=== PATIENT | male | born 1990 | race Caucasian/White ===

== ENCOUNTER 2016-09-05 20:24 | Emergency (ER) | payer OTHER ==
[2016-09-05] MEDS ORDERED: LIDOCAINE 2% JELLY 5 ML TUBE TOP ONE (20:43)
--- NOTE | 2016-09-05 20:45 | ER Document Report ---
ED General - General Chief Complaint: Penile Injury Stated Complaint: LACERATION Time Seen by Provider: 09/05/16 20:43 Mode of Arrival: Ambulatory Information source: Patient Notes: 26-year-old uncircumcised male presents with complaints of injury to his foreskin during intercourse. Patient is concerned that the ventral aspect has a tear. Denies any other injuries TRAVEL OUTSIDE OF THE [place] IN LAST 30 DAYS: No - HPI Onset: Just prior to arrival Onset/Duration: Sudden Quality of pain: Burning Severity: Mild Pain Level: 1 Associated symptoms: None Exacerbated by: Denies Relieved by: Denies Similar symptoms previously: No Recently seen / treated by doctor: No - Related Data Allergies/Adverse Reactions: azithromycin Allergy (Verified 09/05/16 20:45) Past Medical History - Social History Smoking Status: Never Smoker Cigarette use (# per day): No Chew tobacco use (# tins/day): No Smoking Education Provided: No Family History: Reviewed & Not Pertinent Patient has suicidal ideation: No Patient has homicidal ideation: No Renal/ Medical History: Denies: Hx Peritoneal Dialysis Review of Systems - Review of Systems Notes: REVIEW OF SYSTEMS: CONSTITUTIONAL : Denies fever, chills, or sweats. Denies recent illness. EENT: Denies eye, ear, throat, or mouth pain or symptoms. Denies nasal or sinus congestion or discharge. Denies throat, tongue, or mouth swelling or difficulty swallowing. CARDIOVASCULAR: Denies chest pain. Denies palpitations or racing or irregular heart beat. Denies ankle edema. RESPIRATORY: Denies cough, cold, or chest congestion. Denies shortness of breath, difficulty breathing, or wheezing. GASTROINTESTINAL: Denies abdominal pain or distention. Denies nausea, vomiting , or diarrhea. Denies blood in vomitus, stools, or per rectum. Denies black, tarry stools. Denies constipation. GENITOURINARY: Denies difficulty urinating, painful urination, burning, frequency, blood in urine, or discharge. MUSCULOSKELETAL: Denies back or neck pain or stiffness. Denies joint pain or swelling. SKIN: Penile injury HEMATOLOGIC : Denies easy bruising or bleeding. LYMPHATIC: Denies swollen, enlarged glands. NEUROLOGICAL: Denies confusion or altered mental status. Denies passing out or loss of consciousness. Denies dizziness or lightheadedness. Denies headache. Denies weakness or paralysis or loss of use of either side. Denies problems with gait or speech. Denies sensory loss, numbness, or tingling. Denies seizures. PSYCHIATRIC: Denies anxiety or stress. Denies depression, suicidal ideation, or homicidal ideation. ALL OTHER SYSTEMS REVIEWED AND NEGATIVE. Dictation was performed using [employer] voice recognition software PHYSICAL EXAMINATION: GENERAL: Well-appearing, well-nourished and in no acute distress. HEAD: Atraumatic, normocephalic. EYES: Pupils equal round and reactive to light, extraocular movements intact, sclera anicteric, conjunctiva are normal. ENT: Nares patent, oropharynx clear without exudates. Moist mucous membranes. NECK: Normal range of motion, supple without lymphadenopathy LUNGS: Breath sounds clear to auscultation bilaterally and equal. No wheezes rales or rhonchi. HEART: Regular rate and rhythm without murmurs ABDOMEN: Soft, nontender, nondistended abdomen. No guarding, no rebound. No masses appreciated. Musculoskeletal: Normal range of motion, no pitting or edema. No cyanosis. NEUROLOGICAL: Cranial nerves grossly intact. Normal speech, normal gait. Normal sensory, motor exams PSYCH: Normal mood, normal affect. SKIN: There is a superficial tear between the foreskin and the ventral surface of the glans penis, as a result there is a small flap that is now hanging where the foreskin had been attached, Physical Exam - Vital signs Vitals: Temp Pulse Resp BP Pulse Ox 98.1 F 103 H 16 148/98 H 98 09/05/16 20:36 09/05/16 20:36 09/05/16 20:36 09/05/16 20:36 09/05/16 20:36 Course - Re-evaluation Re-evalutation: 09/05/16 21:20 Given the extent of the injury I do not believe repair is appropriate, there is a small tear with no significant injury to the urethra glans penis or cosmetic status of the penis. Patient will be given lidocaine jelly for pain relief, very strict return precautions have been provided regarding difficulty urinating ejaculating or infectious process. Patient will be given follow-up with urology if he wishes to have cosmetic repair After performing a Medical Screening Examination, I estimate there is LOW risk for OPEN FRACTURE, COMPARTMENT SYNDROME, TENDON RUPTURE, ACUTE NEUROVASCULAR INJURY, or RETAINED FOREIGN BODY, thus I consider the discharge disposition reasonable. Also, there is no evidence or peritonitis, sepsis, or toxicity. I have reevaluated this patient multiple times and no significant life threatening changes are noted. The patient and I have discussed the diagnosis and risks, and we agree with discharging home with close follow-up with the understanding that symptoms and presentations can change. We also discussed returning to the Emergency Department immediately if new or worsening symptoms occur. We have discussed the symptoms which are most concerning (e.g., changing or worsening pain, fever, numbness, weakness, cool or painful digits) that necessitate immediate return. - Vital Signs Vital signs: Temp Pulse Resp BP Pulse Ox 98.3 F 89 18 142/88 H 96 09/05/16 20:53 09/05/16 20:53 09/05/16 20:53 09/05/16 20:53 09/05/16 20:53 Discharge - Discharge Clinical Impression: foreskin laceration Condition: Stable Disposition: HOME, SELF-CARE Additional Instructions: Return immediately if there is any sign of infection or any other concerns Referrals: BOYD FRIEDMAN MD [ACTIVE STAFF] - Follow up tomorrow
[2016-09-05 21:29] VITALS: BP 142/88
== END 2016-09-05 20:55 | disposition home or self-care (01) ==
LOC: ER 20:24
DX: S31.21XA Laceration without foreign body of penis, initial encounter (principal); X58.XXXA Exposure to other specified factors, initial encounter
CPT/HCPCS: 99283

== ENCOUNTER 2017-01-21 12:41 | Emergency (ER) | payer OTHER ==
[2017-01-21] MEDS ORDERED: OXYCODONE-ACETAMINOPHEN 5-325 MG TABLET PO ONE (14:18)
--- NOTE | 2017-01-21 14:31 | ER Document Report ---
HPI - HPI Patient complains to provider of: Neck and left shoulder pain Onset: Yesterday Onset/Duration: Sudden Quality of pain: Burning Severity: Moderate Pain Level: 4 Context: Patient states he was lifting chairs yesterday but does not recall any acute injury. Started having some neck and left shoulder pain which radiates numbness and tingling down his left arm. Patient states he has had this before , had a recent MRI at the [facility] in [place]. Was diagnosed with bulging disks, but had no spurs or other abnormalities other than the bulging disks. Patient is already on ibuprofen, gabapentin, and muscle relaxers for this condition. States symptoms are the same as what he has had in the past. Patient states he is being referred to neurosurgeon. Associated Symptoms: None Exacerbated by: Movement Relieved by: Denies Similar symptoms previously: Yes Recently seen / treated by doctor: Yes - ROS ROS below otherwise negative: Yes Systems Reviewed and Negative: Yes All other systems reviewed and negative - CARDIOVASCULAR Cardiovascular: DENIES: Chest pain - RESPIRATORY Respiratory: DENIES: Trouble Breathing - MUSCULOSKELETAL Musculoskeletal: REPORTS: Extremity pain - left arm - DERM Skin Color: Normal Past Medical History - General Information source: Patient - Social History Smoking Status: Current Every Day Smoker Chew tobacco use (# tins/day): No Frequency of alcohol use: former Drug Abuse: None Lives with: Spouse/Significant other Family History: Reviewed & Not Pertinent Patient has suicidal ideation: No Patient has homicidal ideation: No Musculoskeltal Medical History: Reports Hx Musculoskeletal Trauma, Reports Other - Chronic neck pain Psychiatric Medical History: Reports: Hx Anxiety, Hx Depression - anxiety Surgical Hx: Negative - Immunizations Hx Diphtheria, Pertussis, Tetanus Vaccination: No Vertical Provider Document - CONSTITUTIONAL Agree With Documented VS: Yes Exam Limitations: No Limitations General Appearance: WD/WN, Mild Distress - INFECTION CONTROL TRAVEL OUTSIDE OF THE [place] IN LAST 30 DAYS: No - HEENT HEENT: Atraumatic, Normal ENT Exam, Normocephalic, PERRLA - NECK Notes: Tenderness noted to cervical spine and left cervical muscles extending over to the left shoulder. 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 Neurovascular and sensation is intact to left extremity. Pain with range of motion of neck, more with turning head towards the left shoulder. - RESPIRATORY Respiratory: Breath Sounds Normal, No Respiratory Distress O2 Sat by Pulse Oximetry: 99 - CARDIOVASCULAR Cardiovascular: Regular Rate, Regular Rhythm - GI/ABDOMEN Gastrointestinal: Abdomen Soft - MUSCULOSKELETAL/EXTREMETIES Musculoskeletal/Extremeties: Tender - Muscles across left shoulder - NEURO Level of Consciousness: Awake, Alert, Appropriate - DERM Integumentary: Warm, Dry Course - Vital Signs Vital signs: Temp Pulse Resp BP Pulse Ox 98.4 F 102 H 18 144/86 H 99 01/21/17 12:44 01/21/17 12:44 01/21/17 12:44 01/21/17 12:44 01/21/17 12:44 Discharge - Discharge Clinical Impression: Chronic neck pain, Paresthesia of left upper extremity Condition: Good Disposition: HOME, SELF-CARE Additional Instructions: Ice or heat packs to neck and shoulder continue medications that you already have at home for this condition Take Percocet as needed Follow-up with your doctor Monday for recheck Return for worsening symptoms and as needed Prescriptions: Oxycodone HCl/Acetaminophen [Percocet 5-325 mg Tablet] 1 - 2 tab PO ASDIR PRN # 15 tablet PRN Reason:
[2017-01-21 14:40] VITALS: BP 138/78
== END 2017-01-21 14:41 | disposition home or self-care (01) ==
LOC: ER 12:41
DX: G89.29 Other chronic pain (principal); M54.2 Cervicalgia; R20.2 Paresthesia of skin; M25.512 Pain in left shoulder; F17.200 Nicotine dependence, unspecified, uncomplicated
CPT/HCPCS: 99283

== ENCOUNTER 2017-04-26 06:32 | Emergency (ER) | payer OTHER ==
[2017-04-26] MEDS ORDERED: KETOROLAC TROMETHAMINE 60 MG/2 ML SDV IM ONE (07:31)
[2017-04-26] MEDS ORDERED: ACETAMINOPHEN 325 MG TABLET PO ONE (07:32)
--- NOTE | 2017-04-26 07:41 | ER Document Report ---
HPI - HPI Patient complains to provider of: Chronic left neck pain Onset: Other - Over a year Onset/Duration: Worse Pain Level: 4 Context: 26-year-old male [facility] with herniated disc in the cervical spine on MRI is [facility]. He normally takes Tylenol and Motrin for pain but after raking yesterday it exacerbated and has worsening pain not being able to sleep last night. He uses heat ordinarily. He also takes Neurontin 1200 mg. Exacerbated by: Movement Relieved by: Denies - ROS ROS below otherwise negative: Yes Systems Reviewed and Negative: Yes All other systems reviewed and negative - MUSCULOSKELETAL Musculoskeletal: REPORTS: Extremity pain Past Medical History - General Information source: Patient - Social History Smoking Status: Current Every Day Smoker Frequency of alcohol use: None Drug Abuse: None Lives with: Family Family History: Reviewed & Not Pertinent Patient has suicidal ideation: No Patient has homicidal ideation: No Renal/ Medical History: Denies: Hx Peritoneal Dialysis Musculoskeltal Medical History: Reports Hx Musculoskeletal Trauma, Reports Other - Chronic neck pain and torticollis due to cervical spine herniation Psychiatric Medical History: Reports: Hx Anxiety, Hx Depression - anxiety Surgical Hx: Negative - Immunizations Hx Diphtheria, Pertussis, Tetanus Vaccination: No Vertical Provider Document - CONSTITUTIONAL Agree With Documented VS: Yes Exam Limitations: No Limitations - INFECTION CONTROL TRAVEL OUTSIDE OF THE [place] IN LAST 30 DAYS: No - HEENT HEENT: Normal ENT Exam - NECK Neck: Supple - Tender left trapezius and left periscapular muscle. He is tilting his head to the left. Vascular is intact in the arm with full range of motion upon encouragement. - RESPIRATORY Respiratory: Breath Sounds Normal, No Respiratory Distress - CARDIOVASCULAR Cardiovascular: Regular Rate, Regular Rhythm - MUSCULOSKELETAL/EXTREMETIES Musculoskeletal/Extremeties: Tender - See above. negative: Edema - NEURO Level of Consciousness: Awake, Alert Motor/Sensory: No Motor Deficit, No Sensory Deficit - DERM Integumentary: Warm, Dry, No Rash Discharge - Discharge Clinical Impression: Exacerbation of chronic left torticollis Condition: Good Disposition: HOME, SELF-CARE Additional Instructions: [facility] as [facility] Warm compress Tylenol up to 4000 mg per day Continue the Motrin 800 mg 3 times a day Continue the Neurontin Return to the emergency room any concerns or worsening of the symptoms Prescriptions: Oxycodone HCl/Acetaminophen [Percocet 5-325 mg Tablet] 1 - 2 tab PO ASDIR PRN # 10 tablet PRN Reason:
[2017-04-26 08:26] VITALS: BP 136/96
== END 2017-04-26 08:08 | disposition home or self-care (01) ==
LOC: ER 06:32
DX: M43.6 Torticollis (principal); M54.2 Cervicalgia; G89.29 Other chronic pain; Z79.899 Other long term (current) drug therapy; F17.200 Nicotine dependence, unspecified, uncomplicated
CPT/HCPCS: 99283; 96372; J1885

== ENCOUNTER 2017-05-03 17:04 | Emergency (ER) | payer OTHER ==
[2017-05-03] MEDS ORDERED: DEXAMETHASONE SOD PHOS INJ 10 MG/1 ML VIAL IM ONE (17:53)
--- NOTE | 2017-05-03 18:01 | ER Document Report ---
ED Neck/Back Problem - General Chief Complaint: Neck Pain >24hrs old Stated Complaint: NECK PAIN Time Seen by Provider: 05/03/17 17:44 Mode of Arrival: Ambulatory Information source: Patient Notes: 26-year-old male presented ED for complaint of chronic neck and back pain. He is followed by the [facility]. And is he states he is scheduled for his a surgical consult next week. He states he injured his neck and back about for 5 years ago and [facility]. His primary doctor gave him gabapentin and ibuprofen. He states that he has compressed disc and bulging disc with pinched nerve on his last radiological exams. He states that his primary doctor gave him steroids about a month ago and they helped for short period of time. He states he was seen several weeks ago and 1 of the providers here gave him Percocet and he needs more pain medicine for the pain until he can be seen by his surgeon. He states his [facility] doctor will not give him narcotics but gives him gabapentin and ibuprofen TRAVEL OUTSIDE OF THE [place] IN LAST 30 DAYS: No - HPI Patient complains to provider of: Pain, Neck, Upper back Onset: Other - Chronic Onset: Chronic Timing: Still present Quality of pain: Sharp, Throbbing Severity: Moderate Pain Level: 4 Recent injury: No Associated symptoms: Like prior neck/back pain, Radiation to arm Exacerbated by: Movement of neck Relieved by: Nothing Similar symptoms previously: Yes Recently seen / treated by doctor: Yes - Related Data Allergies/Adverse Reactions: azithromycin Allergy (Verified 12/29/16 23:02) Past Medical History - General Information source: Patient - Social History Smoking Status: Current Every Day Smoker Cigarette use (# per day): Yes - Half a pack a day Chew tobacco use (# tins/day): No Smoking Education Provided: Yes - 4 minutes Frequency of alcohol use: None Drug Abuse: None Occupation: None Lives with: Family Family History: Reviewed & Not Pertinent Patient has suicidal ideation: No Patient has homicidal ideation: No - Past Medical History Cardiac Medical History: Reports: None Pulmonary Medical History: Reports: None EENT Medical History: Reports: None Neurological Medical History: Reports: None Endocrine Medical History: Reports: None Renal/ Medical History: Reports: None Malignancy Medical History: Reports None GI Medical History: Reports: None Musculoskeltal Medical History: Reports Hx Arthritis, Reports Hx Musculoskeletal Deformity - Compressed and bulging disc cervical, Reports Hx Musculoskeletal Trauma - Cervical spine injuries while in the . Psychiatric Medical History: Reports: Hx Anxiety, Hx Depression Traumatic Medical History: Reports: None Infectious Medical History: Reports: None Surgical Hx: Negative Past Surgical History: Reports: None - Immunizations Hx Diphtheria, Pertussis, Tetanus Vaccination: No Review of Systems - Review of Systems Notes: Constitutional: [PRESENT: as per HPI. ABSENT: chills, fever(s), headache(s), weight gain, weight loss] Eyes: [ABSENT: visual disturbances] Ears: [ABSENT: hearing changes] Cardiovascular: [ABSENT: chest pain, dyspnea on exertion, edema, orthropnea, palpitations] Respiratory: [ABSENT: cough, hemoptysis] Gastrointestinal: [ABSENT: abdominal pain, constipation, diarrhea, hematemesis, hematochezia, nausea, vomiting] Genitourinary: [ABSENT: dysuria, hematuria] Musculoskeletal: [ABSENT: joint swelling] pain to the neck that is chronic. Patient states he is awaiting consult for surgery to the cervical spine. Integumentary: [ABSENT: rash, wounds] Neurological: [ABSENT: abnormal gait, abnormal speech, confusion, dizziness, focal weakness, syncope] Psychiatric: [ABSENT: anxiety, depression, homicidal ideation, suicidal ideation ] Endocrine: [ABSENT: cold intolerance, heat intolerance, menstrual abnormalities , polydipsia, polyuria] Hematologic/Lymphatic: [ABSENT: easy bleeding, easy bruising, lymphadenopathy] Physical Exam - Vital signs Vitals: Temp Pulse Resp BP Pulse Ox 98.2 F 105 H 16 137/93 H 97 05/03/17 17:20 05/03/17 17:20 05/03/17 17:20 05/03/17 17:20 05/03/17 17:20 - Notes Notes: PHYSICAL EXAMINATION: GENERAL: Well-appearing, well-nourished and in no acute distress. HEAD: Atraumatic, normocephalic. EYES: Pupils equal round and reactive to light, extraocular movements intact, sclera anicteric, conjunctiva are normal. ENT: Nares patent, oropharynx clear without exudates. Moist mucous membranes. NECK: Tenderness to cervical spine as well as to left and right side of neck. Patient has full range of motion of his neck full range of motion of both arms and shoulders. He states there is pain with range of motion to his shoulders. Patient has full sensation to both arms. Patient has 5 out of 5 resistance to both shoulders LUNGS: Breath sounds clear to auscultation bilaterally and equal. No wheezes rales or rhonchi. HEART: Regular rate and rhythm without murmurs ABDOMEN: Soft, nontender, nondistended abdomen. No guarding, no rebound. No masses appreciated. Musculoskeletal: Normal range of motion, no pitting or edema. No cyanosis. NEUROLOGICAL: Cranial nerves grossly intact. Normal speech, normal gait. Normal sensory, motor exams PSYCH: Normal mood, normal affect. SKIN: Warm, Dry, normal turgor, no rashes or lesions noted. Course - Re-evaluation Re-evalutation: 05/04/17 02:08 Patient stated he had ibuprofen just before coming to the emergency room and I treated him with Toradol while in the emergency room. Patient was discharged home with a prescription for Robaxin as he was driving. Patient requested a Toradol shot while in the emergency room but explained to him that I could not give him Toradol when he had already had ibuprofen. Patient to follow-up with his [facility] doctor as well as his surgeon as scheduled. Patient stated several times that he needed narcotics and I explained to him that the emergency room did not treat chronic pain with narcotics. - Vital Signs Vital signs: Temp Pulse Resp BP Pulse Ox 98.7 F 100 18 140/102 H 97 18 18:08 0318 18:08 18 18:08 05/03/17 18:08 05/03/17 18:08 Discharge - Discharge Clinical Impression: Chronic neck and back pain Condition: Stable Disposition: HOME, SELF-CARE Instructions: Range of Motion Exercises ([facility]), Exercise Program for the Shoulder ([facility]), Stretching Exercises for the Back ([facility]) Additional Instructions: Chronic Back Pain Chronic back pain (pain persisting longer than three months) is a common problem. A medical evaluation can look for herniated disc, arthritis, osteoporosis, tumors, and infections. But at least half the time, there's no obvious treatable cause. Anxiety and depression tend to worsen back pain. Ibuprofen or other anti-inflammatory medicine can help. A heating pad, used for 15-20 minutes at a time, can ease pain. For this type of back pain, narcotic medicines should be avoided. Muscle relaxers are rarely helpful unless you're having spasms. Activity is important. Find an aerobic exercise program that your back can tolerate. Too much rest makes back pain worse. Specific back exercises are usually prescribed to strengthen the back and abdominal muscles. Often, a physical therapist can help. Avoid heavy lifting, working while bent over, or standing with both knees straight. Most back pain patients do better with a firm mattress. If new symptoms of a "herniated disc" (radiation of pain, numbness, or tingling down the back of the leg or weakness in the leg) occur, you should be re-examined. Chronic Pain Control Stress, inactivity, and depression make pain more severe regardless of the cause of the pain. Stress and poor physical condition can cause pain such as headaches and backache. Relaxation: Rest in a quiet place with your eyes closed for 20 minutes twice daily. Concentrate on a pleasant image, or simply "feel" your breathing. Clear your mind. Stress management: Deal with your "stressors." Either take action, or eliminate the stressor from your life. Don't let things hang over you. Accept those things you can't change. Nutrition: Eat small, balanced meals -- don't skip, don't overeat. Meals should be high-carbohydrate, low-sugar, low-fat. Exercise: Exercise helps painful conditions and eases stress. Get 30 minutes of moderate exercise, five days a week. Do an activity that does not flare your pain. Precautions: Pain which continues to disrupt daily activities, or which changes in nature, requires a medical evaluation. Pain Clinic referral is available. We do not manage chronic pain in the Emergency Department. We will try to appropriately help you through an acute flare of your chronic painful condition , but for on-going chronic pain that does not improve, you will need to see your private doctor or automotive painter helper. We do not provide repeated medication management of chronic painful conditions. If you wish, we can provide the name of local pain management physicians. STEROID MEDICATION: You have been given an injection of medicine of the cortisone/steroid class. This medication is used to control inflammation or allergy. It is often continued as a pill for a short period of time, until the acute process subsides. There are usually no side effects from short-term use of cortisone-like medications. Some persons feel an increased sense of well-being and are not sleepy at bedtime. Long-term use of cortisone medications is best avoided, unless required for a severe condition. If your condition does not remit, or relapses after the course of corticosteroid medication, you should consult your physician. USE OF TYLENOL (ACETAMINOPHEN): Acetaminophen may be taken for pain relief or fever control. It's much safer than aspirin, offering a wider range of "safe" dosages. It is safe during . Some brand names are Tylenol, Panadol, Datril, Anacin 3, Tempra, and Liquiprin. Acetaminophen can be repeated every four hours. The following are maximum recommended dosages: WEIGHT Dose Drops Elixir Chewable( 80mg) (LBS.) drprs=droppers tsp=teaspoon 6 40 mg 0.4 ml (1/2) 6-11 80 mg 0.8 ml (full) tsp 1 tab 12-16 120 mg 1 1/2 drprs 3/4 tsp 1 1/2 tabs 17-23 160 mg 2 drprs 1 tsp 2 tabs 24-30 240 mg 3 drprs 1 1/2 tsp 3 tabs 30-35 320 mg 2 tsp 4 tabs 36-41 360 mg 2 1/4 tsp 4 1/2 tabs 42-47 400 mg 2 1/2 tsp 5 tabs 48-53 480 mg 3 tsp 6 tabs 54-59 520 mg 3 1/4 tsp 6 1/2 tabs 60-64 560 mg 3 1/2 tsp 7 tabs 65-70 600 mg 3 3/4 tsp 7 1/2 tabs 71-76 640 mg 4 tsp 8 tabs 77-82 720 mg 4 1/2 tsp 9 tabs 83-88 800 mg 5 tsp 10 tabs >89 pounds or adults 650 mg to 900 mg Acetaminophen can be repeated every four hours. Maximum dose not to exceed 4000 mg a day. These maximum recommended dosages are slightly higher than the dosages written on the product container, but these dosages are very safe and below the toxic dosage for acetaminophen. ICE PACKS: Apply ice packs frequently against the painful area. Many different schedules are recommended, such as "20 minutes on, 20 minutes off" or "one hour ice, two hours rest." If you need to work, you may need to go longer between ice treatments. You should plan to have the area ice packed AT LEAST one fourth of the time. The ice should be applied over the wrap, tape, or splint, or over a layer of cloth -- not directly against the skin. Some ice bags have a built-in cloth and can be put directly on the skin. WARM PACKS: After approximately two days, apply gentle heat (such as a heating pad or hot water bottle) for about 20 to 30 minutes about every two hours -- at least four times daily. Warmth and elevation will help you make a more rapid recovery , and will ease the pain considerably. Do not use HOT heat, and never apply heat for longer than 30 minutes. The continuous heat can invisibly damage skin and muscles -- even when no burn is seen on the surface. Damaged muscles can make you MORE sore. MUSCLE RELAXERS: Muscle relaxing medications are usually prescribed for acute muscle spasm or injury to the neck and back. They are often combined with antiinflammatory pain medication for increased relief. You may stop the muscle relaxer when the pain and stiffness have improved. Start the medication again if spasms recur. Muscle relaxers may cause drowsiness, especially with the first dose. Do not operate machinery or drive while under the effects of the medication. Most muscle relaxers last up to 24 hours. Do not combine the medication with alcohol. FOLLOW-UP CARE: If you have been referred to a physician for follow-up care, call the physician s office for an appointment as you were instructed or within the next two days. If you experience worsening or a significant change in your symptoms, notify the physician immediately or return to the Emergency Department at any time for re-evaluation. Call your [facility] doctor to get further pain medication. Please follow-up with your neurologist and your neurosurgeon as per scheduled. Prescriptions: Methocarbamol [Robaxin 500 mg Tablet] 500 mg PO BIDP PRN #14 tablet PRN Reason: Forms: Smoking Cessation Education, Elevated Blood Pressure
[2017-05-03 18:10] VITALS: BP 140/102
== END 2017-05-03 18:39 | disposition home or self-care (01) ==
LOC: ER 17:04
DX: M54.2 Cervicalgia (principal); M54.9 Dorsalgia, unspecified; G89.29 Other chronic pain; Z79.899 Other long term (current) drug therapy; F17.210 Nicotine dependence, cigarettes, uncomplicated
CPT/HCPCS: 99406; 99283; 96372; J1100

== ENCOUNTER 2017-05-04 01:24 | Emergency (ER) | payer OTHER ==
[2017-05-04] MEDS ORDERED: DIAZEPAM INJ 10 MG/2 ML DISP.SYRIN IM ONE (02:14)
[2017-05-04] MEDS ORDERED: DIPHENHYDRAMINE HCL 50 MG/ML VIAL IM ONE (02:15)
--- NOTE | 2017-05-04 02:16 | ER Document Report ---
HPI - HPI Pain Level: 5 Notes: Patient is a 26-year-old male with a history of chronic cervicalgia status post injury 4-5 years ago who presents to the ED complaining of left-sided neck stiffness and pain status post discharge from his visit last evening. Patient states that he was given a steroid injection and sent home with Loretta. Patient states that when he went home to try to sleep his neck stiffened up and he has had pain sleeping so he came to the emergency department. Patient states that he has continued chronic left-sided neck pain that radiates down into his left arm. Patient states that he is scheduled to meet with his surgeon next Monday. Patient states that he is still eating and drinking without any difficulties. He is urinating normally and having normal bowel movements. Patient states that his discomfort today is nothing new from what he has had in the past aside from the stiffness associated. He has not had any recent illness. Denies any headache, fever, head injury, changes in vision/ speech/mentation/hearing, URI, sore throat, chest pain, palpitations, syncope, cough, shortness of breath, wheeze, dyspnea, abdominal pain, nausea/vomiting/ diarrhea, urinary retention, dysuria, hematuria, loss of control of bowel or bladder, numbness/tingling, saddle anesthesia, muscle paralysis/weakness, or rash. - ROS Systems Reviewed and Negative: Yes All other systems reviewed and negative - DERM Skin Color: Normal Past Medical History - Social History Smoking Status: Unknown if Ever Smoked Family History: Reviewed & Not Pertinent Patient has suicidal ideation: No Patient has homicidal ideation: No Renal/ Medical History: Denies: Hx Peritoneal Dialysis Musculoskeltal Medical History: Reports Hx Musculoskeletal Trauma Psychiatric Medical History: Reports: Hx Anxiety, Hx Depression - anxiety - Immunizations Hx Diphtheria, Pertussis, Tetanus Vaccination: No Vertical Provider Document - CONSTITUTIONAL Agree With Documented VS: Yes Notes: PHYSICAL EXAMINATION: GENERAL: Well-appearing, well-nourished and in no acute distress. A&Ox4. Answers questions appropriately. HEAD: Atraumatic, normocephalic. Non-tender. EYES: Pupils equal round and reactive to light, extraocular movements intact, sclera anicteric, conjunctiva are normal. ENT: Nares patent and without discharge. oropharynx clear without exudates. No tonsilar hypertrophy or erythema. Moist mucous membranes. NECK: LROM. supple without lymphadenopathy. No rigidity. No midline tenderness. Spurling negative. + mild tenderness to the left c-paraspinal mm and left trapezius mm. Head turned slightly left. Kernig/brudzinski otherwise negative. LUNGS: Breath sounds clear to auscultation bilaterally and equal. No wheezes rales or rhonchi. HEART: Regular rate and rhythm without murmurs, rubs, gallops. Musculoskeletal: UE's b/l: FROM to passive/active. Strength 5+/5. No deficits noted. No bony tenderness of extremities. N/V intact. Back: FROM to passive/active. Strength 5+/5. No vertebral point tenderness, stepoffs, or deformities. No other bony tenderness, erythema, swelling, or ecchymosis. Extremities: No cyanosis, clubbing, or edema b/l. Peripheral pulses 2+. Capillary refill less than 2 seconds. NEUROLOGICAL: Normal speech, normal gait. Normal sensory, motor exams. Reflexes 2+ b/l. PSYCH: Normal mood, normal affect. SKIN: Warm, Dry, normal turgor, no rashes or lesions noted. - INFECTION CONTROL TRAVEL OUTSIDE OF THE [place] IN LAST 30 DAYS: No - RESPIRATORY O2 Sat by Pulse Oximetry: 96 Course - Re-evaluation Re-evalutation: 05/04/17 02:[address] King who is in agreement with dispo and plan: Patient is an afebrile, well-hydrated, 26-year-old male who presents to the ED with left neck/trapezius muscle spasm, possible mild torticollis. Vitals are acceptable (HR on my exam 96). PE is otherwise unremarkable for any focal neurological deficits, neurovascular compromise, obvious tendon/ligament rupture , obvious fracture/dislocation, sepsis, meningitis, or other systemic emergent condition at this time. No labs or imaging warranted at this time based on H& P. Patient was given Valium 5mg, toradol 30mg, lidoderm patch, and Benadryl 50mg IM. patient already has a muscle relaxer prescription from his recent visit as well as having received Decadron last evening. I will send him home with naproxen and lidoderm patches. Recommend conservative measures otherwise for symptoms. Recheck with your PCM in 3-5 days. Keep consult with her surgeon next week. Return to the ED with any worsening/concerning symptoms otherwise as reviewed discharge. Patient is in agreement. Pt did request vicodin which will not give as he appears to already be on nucynta and other medications through his pain management from his PCM. He was also asking for this at his prev visit with Alvin. Pt also asked to speak with another provider due to me not giving him narcotics. Dr. King went and spoke with the patient. Discharge as above. - Vital Signs Vital signs: Temp Pulse Resp BP Pulse Ox 98.3 F 128 H 18 145/91 H 96 05/04/17 01:29 05/04/17 01:29 05/04/17 01:29 05/04/17 01:29 05/04/17 01:29 Discharge - Discharge Clinical Impression: Trapezius muscle spasm Condition: Stable Disposition: HOME, SELF-CARE Additional Instructions: Rest, Ice Tylenol/ibuprofen as needed Light stretches daily Strength exercises as able Moist heat and massage may help F/u with your PCP in 3-5 days for a recheck Keep consult with your surgeon next week Return to the ED with any worsening symptoms and/or development of fever, headache, chest pain, palpitations, syncope, shortness of breath, trouble breathing, abdominal pain, n/v/d, blood in stool/urine, loss of control of bowel /bladder, urinary retention, muscle weakness/paralysis, saddle anesthesia, numbness/tingling, or other worsening symptoms that are concerning to you. Prescriptions: Lidocaine [Lidoderm] 1 each TP DAILY #30 adh..patch Naproxen 500 mg PO BID PRN #30 tablet PRN Reason: Forms: Elevated Blood Pressure Referrals: DILCIA RODRIGUEZ MD [Primary Care Provider] - Follow up in 3-5 days
[2017-05-04] MEDS ORDERED: KETOROLAC TROMETHAMINE INJ/PF 30 MG/1 ML SDV IM ONE (02:26)
[2017-05-04] MEDS ORDERED: LIDOCAINE 5% (700 MG) TRANSDERMAL ADH..PATCH TP ONE (03:01)
[2017-05-04 03:28] VITALS: BP 136/57
== END 2017-05-04 03:27 | disposition home or self-care (01) ==
LOC: ER 01:24
DX: M62.830 Muscle spasm of back (principal); M54.2 Cervicalgia; G89.29 Other chronic pain
CPT/HCPCS: 99282; 96372; J3360; J1200; J1885

== ENCOUNTER 2017-05-20 09:41 | Emergency (ER) | payer OTHER ==
--- NOTE | 2017-05-20 10:07 | ER Document Report ---
ED Neck/Back Problem - General Mode of Arrival: Ambulatory Information source: Patient TRAVEL OUTSIDE OF THE [place] IN LAST 30 DAYS: No - HPI Patient complains to provider of: Pain, Injury, Neck Onset: This morning Where: Home Context: Other - see notes above Associated symptoms: Other - see notes above Exacerbated by: Movement of neck - General Chief Complaint: Neck Pain < 24hrs old Stated Complaint: NECK PAIN Time Seen by Provider: 05/20/17 09:55 Notes: 26 year old male with history of 3 cervical bulging discs presents to the ED complaining of neck pain and stiffness that was exacerbated this morning when his son jumped from the couch and landed knee first onto the patient's neck while seated on the floor. Patient reports that he has a previous neck injury that he is seeing neurology for and believes that today's injury has exacerbated the injury. Patient had an MRI performed in November 2016, but is still waiting to be seen by his neurologist. Patient additionally complains of numbness and tingling down the anterior aspect of the left arm. Patient on Neurontin and steroids. Last steroid dose last week. Patient was taking Robaxin, but ran out 3 days ago. (ROSALBA ROMAN) - Related Data Allergies/Adverse Reactions: azithromycin Allergy (Verified 05/20/17 09:58) Past Medical History - General Information source: Patient - Social History Smoking Status: Current Every Day Smoker Chew tobacco use (# tins/day): No Frequency of alcohol use: None Drug Abuse: None Family History: Reviewed & Not Pertinent Patient has suicidal ideation: No Patient has homicidal ideation: No Renal/ Medical History: Denies: Hx Peritoneal Dialysis Musculoskeltal Medical History: Reports Hx Musculoskeletal Trauma, Reports Other - 3 bulging cervical discs Psychiatric Medical History: Reports: Hx Anxiety, Hx Depression - anxiety - Immunizations Hx Diphtheria, Pertussis, Tetanus Vaccination: No Review of Systems - Review of Systems Constitutional: No symptoms reported EENT: No symptoms reported Cardiovascular: No symptoms reported Respiratory: No symptoms reported Gastrointestinal: No symptoms reported Genitourinary: No symptoms reported Male Genitourinary: No symptoms reported Musculoskeletal: See HPI, Neck pain, Other - stiff neck Skin: No symptoms reported Hematologic/Lymphatic: No symptoms reported Neurological/Psychological: See HPI, Numbness - down anterior aspect of left arm , Tingling - down anterior aspect of left arm -: Yes All other systems reviewed and negative Physical Exam - Vital signs Vitals: Temp Pulse Resp BP Pulse Ox 98.3 F 109 H 20 145/93 H 96 05/20/17 09:51 05/20/17 09:51 05/20/17 09:51 05/20/17 09:51 05/20/17 09:51 - Notes Notes: GENERAL: Alert, interacts well. No acute distress. HEAD: Normocephalic, atraumatic. EYES: Pupils equal, round, and reactive to light. Extraocular movements intact. ENT: Oral mucosa moist, tongue midline. NECK: Trachea midline. Tenderness to palpation of the bilateral trapezius muscles at the level of the neck to the shoulders. Diffuse bony midline cervical tenderness with no deformity. Held neck stiff in midline. Range of motion held to midline. LUNGS: Clear to auscultation bilaterally, no wheezes, rales, or rhonchi. No respiratory distress. HEART: Mild tachycardia with normal rhythm. No murmurs, gallops, or rubs. EXTREMITIES: Moves all 4 extremities spontaneously. No edema, radial and dorsalis pedis pulses 2/4 bilaterally. No cyanosis. Full range of motion of the bilateral upper extremities. NEUROLOGICAL: Alert and oriented x3. Normal speech. Sharp-dull sensation intact across the left upper extremity. Slight weakness with the supraspinatus test to the left upper extremity, otherwise 5/5 strength to the bilateral upper extremities. PSYCH: Normal affect, normal mood. SKIN: Warm, dry, normal turgor. No rashes or lesions noted. (ROSALBA ROMAN) Course - Re-evaluation Re-evalutation: 05/20/17 12:07 Initial x-ray shows reversal cervical lordosis likely due to muscle spasm as well as widening of the C7-T1 facet joints bilaterally likely due to positioning. After discussing these results with Dr. Zaragoza and correlating them with his physical exam I do think it is safe to take off the cervical collar and repeat the x-ray and do flexion and extension views to look for instability. Repeat x-ray showed reversal of cervical curvature likely due to muscle spasm, no flexion or extension instability. There is no widening seen at this point as there was on the last x-ray. Patient symptoms complaining of some numbness to his left upper extremity or concerning for possible nerve impingement however this is not reproducible on examination. There is no evidence of such severe acute nerve impingement that he would require emergent survey to surgery today to preserve muscle or nerve function. Discussed with patient that it will be very important to follow-up with his primary care physician and his neurosurgeon, that he should return to the emergency department should he develop any weakness, any worsening in his numbness. No indication for emergent MRI at this point. Patient's Robaxin will be refilled, he has been given a shot of Toradol and he will be discharged home. (JEMMA PEDERSEN) - Vital Signs Vital signs: Temp Pulse Resp BP Pulse Ox 98.1 F 113 H 18 139/95 H 100 05/20/17 12:10 05/20/17 12:10 05/20/17 12:10 05/20/17 12:10 05/20/17 12:10 Discharge - Discharge Clinical Impression: Cervical paraspinal muscle spasm, Neck pain, Elevated blood pressure reading, Arm paresthesia, left Condition: Stable Disposition: HOME, SELF-CARE Additional Instructions: Today we did not find any fracture on your x-ray or any problems with the alignment of the bones in your neck. You are able to tell sharp from dull on your physical examination despite having sensations of numbness in your left arm. Should you develop significant weakness in your left arm, have true numbness in your left arm where you cannot feel anything touching your left arm or develop any new or concerning symptoms please return to the emergency department. We have refilled your Robaxin, the muscle relaxer that she had previously been taking it. It is very important to follow-up with your primary care physician and with your neurosurgeon. Prescriptions: Methocarbamol [Robaxin 750 mg Tablet] 750 mg PO ASDIR PRN #40 tablet PRN Reason: Referrals: [facility] [Provider Group] - Follow up as needed Scribe Attestation: 05/20/17 12:49 I personally performed the services described in the documentation, reviewed and edited the documentation which was dictated to the scribe in my presence, and it accurately records my words and actions. (JEMMA PEDERSEN) Scribe Documentation - Scribe Written by Alexandro:: Alexandro Duckworth, 05/20/2017 1044 acting as scribe for :: Nabil
--- NOTE | 2017-05-20 10:49 | RADIOLOGY REPORT (SQ) ---
EXAM DESCRIPTION: CERV SP 4 OR 5 VIEWS COMPLETED DATE/TIME: 05/20/2017 10:27 am REASON FOR STUDY: son jumped on neck COMPARISON: None. NUMBER OF VIEWS: Five views. TECHNIQUE: AP, lateral, obliques and odontoid radiographic images acquired of the cervical spine. LIMITATIONS: Patient immobilized in a collar FINDINGS: MINERALIZATION: Normal. ALIGNMENT: There is reversal of cervical curvature, likely due to muscle spasm. On the oblique views , there is mild widening of the bilateral C7-T1 facet joints, likely due to patient positioning. VERTEBRAE: Vertebral bodies of normal height. DISCS: No significant osteophytes or sclerosis. Disc height maintained. FORAMINA: No osteophytes or foraminal narrowing. LATERAL AND POSTERIOR ELEMENTS: Facets, lateral masses and spinous processes without significant find ings. HARDWARE: None in the spine. SOFT TISSUES: No masses or calcifications. Lung apices clear. OTHER: Findings discussed with Dr. Ferrer IMPRESSION: Reversal of cervical lordosis likely due to muscle spasm. There is widening of the C7-T 1 facet joints bilaterally likely due to patient positioning. Results discussed with the emergency room attending physician TECHNICAL DOCUMENTATION: JOB ID: [id number] [employer]- All Rights Reserved Reading location - IP/workstation name: [email or web address]
[2017-05-20] MEDS ORDERED: KETOROLAC TROMETHAMINE 60 MG/2 ML SDV IM ONE (10:57)
--- NOTE | 2017-05-20 11:53 | RADIOLOGY REPORT (SQ) ---
EXAM DESCRIPTION: CERV SP 4 OR 5 VIEWS COMPLETED DATE/TIME: 05/20/2017 11:26 am REASON FOR STUDY: repeat without collar with flex-ex views COMPARISON: Cervical spine five views 05/20/2017, 1029 hours NUMBER OF VIEWS: Five views. Additional lateral flexion and extension images TECHNIQUE: AP, lateral, obliques and odontoid radiographic images acquired of the cervical spine. Additional flexion and extension images lateral projection LIMITATIONS: None. FINDINGS: MINERALIZATION: Normal. ALIGNMENT: Reversal of cervical curvature likely due to muscle spasm. There is no instability on fle xion/extension. However, patient did not move much between flexion and extension. Anatomic alignmen t on the oblique views VERTEBRAE: Vertebral bodies of normal height. DISCS: No significant osteophytes or sclerosis. Disc height maintained. FORAMINA: No osteophytes or foraminal narrowing. LATERAL AND POSTERIOR ELEMENTS: Facets, lateral masses and spinous processes without significant find ings. HARDWARE: None in the spine. SOFT TISSUES: No masses or calcifications. Lung apices clear. OTHER: No other significant finding. IMPRESSION: Reversal of cervical curvature likely due to muscle spasm. No instability on flexion/ e xtension. TECHNICAL DOCUMENTATION: JOB ID: [id number] [employer]- All Rights Reserved Reading location - IP/workstation name: [email or web address]
[2017-05-20 12:13] VITALS: BP 139/95
== END 2017-05-20 12:18 | disposition home or self-care (01) ==
LOC: ER 09:41
DX: M62.838 Other muscle spasm (principal); M50.80 Other cervical disc disorders, unspecified cervical region; R20.0 Anesthesia of skin; R20.2 Paresthesia of skin; R03.0 Elevated blood-pressure reading, without diagnosis of hypertension; R53.1 Weakness; F17.200 Nicotine dependence, unspecified, uncomplicated; Z79.899 Other long term (current) drug therapy; Z88.1 Allergy status to other antibiotic agents
CPT/HCPCS: 99283; 72050; L0120; J1885